=== PATIENT | male | born 1980 | race Caucasian/White ===

== ENCOUNTER 2022-05-14 15:57 | Emergency (ER) | payer OTHER ==
[2022-05-14 19:24] VITALS: BP 158/94
--- NOTE | 2022-05-14 19:32 | ED Physician Documentation ---
History of Present Illness - Stated complaint Stated Complaint: SHOULDER PX/WORMS IN STOOL - Chief complaint Chief Complaint: Abd Pain - History obtained from History obtained from: Patient - Additonal information Additional information: This is a 41-year-old male with no significant past medical history who presents with a number of different concerns today. His main concern is that he possibly has worms in his stool. He states that he was taking a shower the other day and noticed a small hair-like worm appearing thing on the shower ground. He states that it was moving so he got a piece of scotch tape and collected it and noticed another 1. He had not noticed any change in his stool however, no diarrhea or constipation, no unexplained weight loss, no nausea or vomiting. He has not traveled out of the country recently, denies any atypical water sources or food sources though states it is possible that he cooked some undercooked meat, he has not gone hunting, does not have any animals. He lives alone and states he has not been around anyone has been sick. He is also concerned about some calluses on his right thumb. 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 He has symptoms measures in the area that he believes may have some parasites in them. He is also reporting right shoulder pain. He has had shoulder pain intermittently in the past but woke up today and it felt much more sore than normal particularly with movement. It is feeling somewhat better now. He denies any acute injury but does do a lot of physical activity with his work in states it could be overuse injury. He has no redness, swelling, or trauma to the area. He has not attempted any medication for this. Review of Systems Ten Systems: 10 systems reviewed and negative (Except as noted in the HPI) PD PAST MEDICAL HISTORY - Past Medical History Past Medical History: No - Past Surgical History Past Surgical History: No - Present Medications Home Medications: Ambulatory Orders Medication Instructions Recorded Confirmed Clotrimazole [Clotrimazole AF] 1 gm TP BID #28 gm 05/14/22 Mebendazole [Emverm] 100 mg PO BID 3 Days #6 ea 05/14/22 - Allergies Allergies/Adverse Reactions: Allergies Allergy/AdvReac Type Severity Reaction Status Date / Time No Known Drug Allergies Allergy Verified 05/14/22 16:20 - Social History Does the pt smoke?: No Smoking Status: Never smoker Does the pt drink ETOH?: No Does the pt have substance abuse?: No - Immunizations Immunizations are current?: Yes - POLST Patient has POLST: No PD ED PE NORMAL - Vitals Vital signs reviewed: Yes - General General: Alert and oriented X 3, No acute distress, Well developed/nourished - HEENT HEENT: Atraumatic, Moist mucous membranes - Neck Neck: Supple, no meningeal sign - Cardiac Cardiac: RRR, No murmur - Respiratory Respiratory: No respiratory distress, Clear bilaterally - Abdomen Abdomen: Normal bowel sounds, Soft, Non tender, Non distended - Derm Derm: Normal color, Warm and dry, Other (The tip of the right proximal amputation of the thumb is dry with some discoloration and callus areas and multiple little fissures, I do not see any parasites, drainage or signs of infection.) - Extremities Extremities: No deformity, No tenderness to palpate, Normal ROM s pain - Neuro Neuro: Alert and oriented X 3 Eye Opening: Spontaneous Motor: Obeys Commands Verbal: Oriented GCS Score: 15 - Psych Psych: Normal mood, Normal affect Results - Vitals Vitals: Vital Signs - 24 hr 05/14/22 05/14/22 05/14/22 16:15 18:59 19:24 Temperature 36.0 C L Heart Rate 97 89 82 Respiratory 16 16 16 Rate Blood Pressure 142/84 H 146/97 H 158/94 H O2 Saturation 100 100 100 Oxygen O2 Source Room air PD MEDICAL DECISION MAKING - ED course Complexity details: considered differential, d/w patient ED course: This is a 41-year-old male who presents with concerns for possible worms in his stool. He did bring in a sample of a very thin hair like possible worm on a piece of tape however its been sitting for several days. I am not convinced that this is a wound but I think it is reasonable to treat him with a course of mebendazole pending an ova and parasite study. He has no risk factors such as travel or exposure to animals but may have eaten some undercooked meat which is a possibility. He has not had any GI symptoms of concern. In regards to the callusing on the right thumb, will do a course of clotrimazole and patient was a dvised to try to get an emollient such as Aquaphor and use that frequently on the thumb to help soften the skin but advised that calluses are difficult to remove. Finally the right shoulder pain appears like a overuse musculoskeletal injury and there is no signs of Rotator cuff injury, no trauma, no indication for x-ray at this time, no signs of infection. Recommended supportive measures and follow-up with primary doctor if no improvement in 2 to 3 weeks with as needed ibuprofen, Tylenol and shoulder exercises. Patient was advised that all of these issues can be followed up in the primary care clinic and are nonemergent at this time. Departure - Departure Disposition: 01 Home, Self Care Clinical Impression: Whipworm Right shoulder strain Qualifiers: Encounter type: initial encounter Qualified Code(s): S46.911A - Strain of unspecified muscle, fascia and tendon at shoulder and upper arm level, right arm, initial encounter Condition: Good Instructions: ED Sprain Shoulder Prescriptions: Clotrimazole [Clotrimazole AF] 1 gm TP BID #28 gm Mebendazole [Emverm] 100 mg PO BID 3 Days #6 ea Comments: You presented with several different concerns. You are concerned about possible worms in The stool. I am not clear that these are worms and this is quite unusual in the [place] but we can obtain a ova and parasite stool test in the near stool and will give you a short course of mebendazole which will take care of most of the common worms in the stool. You also have some fissures and calluses on this thumb. Again I do not see any parasites in this wound but I have given you a antifungal cream and also recommend that you purchase some Aquaphor emollient at the store and apply to this area and Cover with something like Saran wrap at nighttime so this has a chance to heal. It will take quite some time however for these calluses to heal. In regards to your shoulder, there is no acute injury which would benefit from imaging at this time, recommend Tylenol and ibuprofen, shoulder exercises, moist heat and follow-up with your primary doctor if pain persist.
== END 2022-05-14 19:37 | disposition home or self-care (01) ==
LOC: ED 15:57
DX: B79 Trichuriasis (principal); S46.911A Strain of unspecified muscle, fascia and tendon at shoulder and upper arm level, right arm, initial encounter; X50.9XXA Other and unspecified overexertion or strenuous movements or postures, initial encounter; L84 Corns and callosities
CPT/HCPCS: 87177; 93005; 99282; 99283